=== PATIENT | male | born 1970 | race Caucasian/White ===

== ENCOUNTER 2016-11-01 20:09 | Emergency (ER) | payer OTHER ==
[~2016-11-01] VITALS: Ht 172.7 cm; Wt 90.7 kg
[2016-11-01 21:22] LABS: Urine Bilirubin Negative (Negative); Urine Blood 2+ /uL (Negative); Urine Color Yellow (Yellow); Urine Glucose Normal (Normal); Urine Ketone Negative (Negative); Urine Mucus FEW (None Seen); Urine Nitrite Negative (Negative); Urine RBC 5 /hpf (0 - 3); Urine Squamous Epithelial Cell FEW /hpf (<5); Urine Urobilinogen Normal (Negative); Urine pH 5.5 (5.0-8.0)
[2016-11-01] MEDS ORDERED: HYDROmorphone HCL 2 MG/ML VL IV ONE (22:15)
[2016-11-01] MEDS ORDERED: ONDANSETRON HCL 4 MG/2 ML VIAL IV ONE (22:15)
[2016-11-01 22:30] LABS: Basophils # (auto) 0 uL; Basophils % (auto) 0.3 % (0.0-2.0); Eosinophils # (auto) 0 uL; Eosinophils % (auto) 0.1 % (0.0-7.0); Hematocrit 43.3 % (41.0-53.0); Lymphocytes # (auto) 1.3 uL; Mean Corpuscular Hemoglobin 31.3 pg (28.0-32.0); Mean Corpuscular Hgb Conc. 34.6 g/dL (32.0-36.0); Mean Corpuscular Volume 90.3 fL (80.0-100.0); Mean Platelet Volume 8.6 fL (6.9-10.8); Monocytes # (auto) 0.7 uL; Monocytes % (auto) 9.9 % (0.0-12.0); Neutrophils # (auto) 5.1 uL; Neutrophils % (auto) 71.7 % (37.0-80.0); Nucleated Red Blood Cells % 0.1 %; Platelet Count (auto) 195 10^3/uL (140-450); Red Cell Distribution Width 13.2 % (11.8-14.3); White Blood Cell 7.1 10^3/uL (4.4-10.8)
[2016-11-01 22:55] LABS: Albumin 3.7 g/dL (3.4-5.0); BUN/Creatinine Ratio 12.6; Potassium 3.7 mmol/L (3.5-5.1)
[2016-11-01 22:58] LABS: Bilirubin, Total 0.5 mg/dL (0.2-1.0); Total Protein 8.2 g/dL (6.4-8.2)
[2016-11-02 02:12] VITALS: BP 121/72
== END 2016-11-02 02:55 | disposition home or self-care (01) ==
LOC: ER 20:17
DX: N20.0 Calculus of kidney (principal)
CPT/HCPCS: 36415; 74176; 80053; 81001; 85025; 96374; 96375; 99285; J1170; J2405